=== PATIENT | female | born 1990 | race African-American/Black ===

== ENCOUNTER 2018-06-13 12:18 | Emergency (ER) | payer OTHER ==
[2018-06-13 13:13] LABS: KETONE, URINE AUTO RFX NEGATIVE (NEGATIVE); NITRITE, URINE AUTO RFX NEGATIVE (NEGATIVE); RBC, URINE AUTO RFX 14 /HPF (0-3); RENAL EPITHELIAL CELLS RFX 2 /HPF; SPECIFIC GRAVITY UR AUTO RFX 1.012 (1.002-1.035); SQUAM EPITHELIAL CELL UR AURFX 1 /HPF (0-6); TRANSITIONAL EPITHELIAL AU RFX <1 /HPF
[2018-06-13 13:30] LABS: LEUKOCYTE ESTERASE UR AUTO RFX 3+ (NEGATIVE); WBC, URINE AUTO RFX 166 /HPF (0-3)
[2018-06-13 13:44] LABS: HCG, SERUM QUANTITATIVE 65089 MIU/ML
[2018-06-13] MEDS ORDERED: NITROFURANTOIN (MACROBID) 100 MG CAP PO (15:30)
== END 2018-06-13 14:15 | disposition home or self-care (01) ==
LOC: M ED 12:18
DX: O20.0 Threatened abortion (principal); O23.41 Unspecified infection of urinary tract in pregnancy, first trimester; Z88.1 Allergy status to other antibiotic agents; Z88.2 Allergy status to sulfonamides; Z3A.10 10 weeks gestation of pregnancy
CPT/HCPCS: 76801

== ENCOUNTER 2018-08-22 20:39 | Outpatient (CLI) | payer OTHER ==
[~2018-08-22] VITALS: Ht 149.9 cm; Wt 61.1 kg
[~2018-08-22 20:39] MED LIST: MACR100C43 PO; PRENTAB55 PO
[2018-08-22 22:03] VITALS: BP 120/58
--- NOTE | 2018-08-22 22:31 | HPE ---
DATE OF ADMISSION: 08/22/2018 28-year-old 2, para 1, LMP 04/11/2018, EDC 01/04/2019 at 20 weeks and 6 days had spotting post intercourse. No cramps. No pain. No loss of fluid. PAST HISTORY July 2013 at 35 weeks, history of pre-eclampsia, oligohydramnios, primary section for nonreassuring heart tones, male 6 pounds. LABS: B+, HIV negative, hep negative, RPR negative, rubella immune. Varicella immune. Gonorrhea and chlamydia are negative. Urine is 10/10, pH 7 negative. Temperature is 98.4, blood pressure 120/58, respirations 18, pulse 82. On examination, no acute distress. No vaginal soiling or bleeding on the perineum. Ultrasound performed showed a viable IUP approximately 20 weeks with anterior placenta, four limb motions were noted, breech presentation. Appropriate RADHA. Cervical length 4.6. No funneling. No evidence of vaginal bleeding on examination. heart rate 160 beats per minute. The rest the examination unremarkable. She is normocephalic, atraumatic. Neck: Full range of motion. Pupils equal and reactive to light. Distal pulses symmetric. No evidence of deep venous thrombosis (DVT), pulmonary embolism (PE) or superficial phlebitis. Chest is clear bilaterally bases. No wheezes or rhonchi. No costovertebral angle (CVA) tenderness, nontender uterus, four quadrant bowel sounds are noted. She has no rashes, lesions or pruritus. No arthralgia, myalgia. No complaints of cough, wheezes, shortness of breath or dyspnea on exertion. Not bleeding. Neuro complete. No incontinency, urgency or frequency. No nausea, vomiting, diarrhea, or constipation. No diabetic issues. No Pap smear. PAST MEDICAL AND SURGICAL HISTORY: Unremarkable. FAMILY HISTORY: Noncontributory. She does not smoke, drink, abuse drugs. She is . Is a housewife. No domestic violence. SUMMARY: We have a 20 week 6 day that had postcoital bleeding. Precautions were given. Discharge undelivered. Has a scheduled appointment and a followup ultrasound on September 19, 2018.
== END 2018-08-22 21:50 | disposition home or self-care (01) ==
LOC: M LDO 20:39
PROVIDERS: ATTEND Obstetrics & Gynecology
DX: O26.892 Other specified pregnancy related conditions, second trimester (principal); O99.89 Other specified diseases and conditions complicating pregnancy, childbirth and the puerperium; N93.0 Postcoital and contact bleeding; Z3A.20 20 weeks gestation of pregnancy
CPT/HCPCS: 76815; G0378; G0463

== ENCOUNTER 2019-01-07 21:03 | Outpatient (CLI) | payer OTHER ==
[~2019-01-07] VITALS: Ht 149.9 cm; Wt 75.3 kg
[2019-01-07 21:22] VITALS: BP 160/95
[2019-01-07 21:34] VITALS: BP 139/95
[2019-01-07 21:43] VITALS: BP 136/91
[2019-01-07 21:52] VITALS: BP 143/94
--- NOTE | 2019-01-08 03:29 | HPE ---
DATE OF ADMISSION: 01/07/2019 This lady is a 28-year-old 2, para 1, last menstrual period (LMP) on 04/11/2018 estimated date of confinement (EDC) 01/04/2019 at 40 and 3 weeks of gestation with history of mild contractions for the last several hours. She is not breathing through them. She has no vaginal loss or bleeding. RISK FACTORS: She had a previous section for preeclampsia and oligohydramnios and nonreassuring heart tones at 35 weeks. LABORATORIES: B+, human immunodeficiency virus (HIV) negative, hepatitis negative, RPR negative, rubella immune. Varicella immune. Pap normal. Urine was contaminated. Gonorrhea and chlamydia are negative. Early 1-hour glucose was 138, 3-hour glucose tolerance test (GTT) fasting 85,l 1-hour 106, 2-hour 94 and 3-hour 79. Her blood pressures here were in the mid range as they were in the clinic 139/95, 136/91 and 120/58, respirations are 16, pulse 82, temperature is 98.1. Her urine is 1010, pH is 7. The rest is negative. The rest of the examination is unremarkable. Normocephalic, atraumatic. Neck: Full range of motion. Pupils equal and reactive to light. Distal pulses symmetric. No evidence of deep vein thrombosis (DVT), pulmonary embolism (PE) or superficial phlebitis. Chest is clear bilaterally bases. No wheezes or rhonchi. Abdomen: Soft. Fundus height appropriate. Four quadrant bowel sounds. Incision is clean and dry and no evidence of pain. On digital examination she had a previous examination yesterday, she was 1 cm posterior. She is now still 1 cm posterior, but a -1 station and she can feel the head in the pelvis. No vaginal bleeding or loss. We discussed the risks and benefits of trial of labor after (TOLAC) verses elective repeat section and this lady was uncertain as to which way to go. She was saying that if she comes in labor she will attempt a trial of labor after (TOLAC) but if it does not go then she will have a section as opposed to booking an elective repeat section. We did discuss the risks of trial of labor after (TOLAC) including hemorrhage, infection, perforation, , , risk of hysterectomy, risk of a blood transfusion all of which seemed to be news to her, although after reviewing the notes of the office notes apparently she was counseled regarding trial of labor after (TOLAC) versus section. As indicated, she is well hydrated. She was not having real contractions but some tightening category one strip. She was discharged with instructions that if there is ruptured membranes, bleeding or she is breathing through her contractions to come back immediately, if not she has an appointment on Sunday to discuss booking an elective repeat section. We spent an hour and answered all questions.
== END 2019-01-07 22:10 | disposition home or self-care (01) ==
LOC: M LDO 21:03
PROVIDERS: ATTEND Obstetrics & Gynecology
DX: O26.893 Other specified pregnancy related conditions, third trimester (principal); O47.1 False labor at or after 37 completed weeks of gestation; Z3A.40 40 weeks gestation of pregnancy
CPT/HCPCS: 59025; G0378; G0463

== ENCOUNTER 2019-01-09 22:13 | Inpatient (IN) | payer OTHER ==
[~2019-01-09] VITALS: Ht 149.9 cm; Wt 74.8 kg
[2019-01-09 22:36] VITALS: BP 121/78
[2019-01-09] MEDS ORDERED: PRENTAB9 PO (22:50)
[2019-01-09] MEDS: LR 1,000 ML IV SCH (23:00)
[2019-01-09] MEDS ORDERED: LACTATED RINGER'S 1000 ML IV STA (23:00)
--- NOTE | 2019-01-09 23:33 | HPEPDOC ---
Obstetrical History & Physical General Date of Admission Jan 09, 2019 at 23:03 History of Present Illness 28 yo at 40+5 weeks gestation by 10+5 week US on [id number] presents to L&D with regular, painful contractions that have been worsening throughout the day and evening. She denies any vaginal bleeding or leakage of fluid. She endorses excellent movement. She has a history of a prior c section in 2013 after an IOL for severe pre eclampsia at 35 weeks gestation for NRFHT and she strongly desires a TOLAC for this . Chief Complaint: Contractions, term Information Provided By: Patient Age: 28 : 2 Term: 1 Pre-term: 0 Abortions: 0 Livin Care Care: Good Care Dating Final EDC: Jan 04, 2019 Final EDC for Daily Update: Jan 04, 2019 Final EDC by: 1st trimester (US) (ALONSO set by 10+5 week US on [id number]) 1st Trimester Date: Jun 24, 2018 (10+5 week US on [id number] set ALONSO of [id number]) Antepartum Course Diagnos(e)s Prior section at 35 weeks in 2013 after IOL for severe Pre E and subsequent NRFHT ---> desires TOLAC for this . Was on ASA until 36 weeks. 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 Past Medical History Medical History Denies Surgical History: section Family History Significant Family History: No pertinent family hx Social History Marital Status: Family situation: Spouse/partner home Psychosocial History: No pertinent psych hx * Smoker: non-smoker Alcohol: Denies Drugs: denies Imunizations Tdap status: current Influenza Status: current Allergies Coded Allergies: erythromycin base (Verified Allergy, Unknown, 01/07/19) sulfisoxazole (Verified Allergy, Unknown, 01/07/19) Medications Scheduled Srf682/Iron Fum/Folic/Docusate ( 19 Tablet) 1 Tab Tab, 1 TAB PO DAILY No.137/Iron/Folic Acd ( Vitamin Tablet) 1 Each Tablet, 1 TAB PO DAILY Physical Examination Physical Examination GENERAL: Alert and oriented times three. ABDOMEN: Gravid and non-tender to touch. FETUS: Is vertex (VTX) by sterile vaginal examination (SVE) EXTREMITIES: No edema. Laboratory Data 24H LABS Laboratory Tests 2 01/09/19 23:08: Serology Scanned Report Hepatitis B Testing Urine Culture: No Growth Pertinent Laboratoy Data Blood Type: B+ RBC Antibody Screen: Negative HIV: Negative Hepatitis B: Negative Hepatitis C: Unknown Rapid Plasma Reagin: Nonreactive Rubella: Immune Varicella: Immune Chlamydia/Gonorrhea: Negative Group B Streptococcus: Negative Quad Screen Test: Negative Cystic Fibrosis: Unknown Glucose Tolerance Test: 138 (1hr 138, but normal 3hr GTT) Anatomy Ultrasound Placenta Location: Anterior Normal Anatomy: Yes Placenta Previa: No Steroid Therapy Steroid Therapy: No Vaginal Examination Dilation: 3 cm Effacement: 100% Station: -1, 0 Cervical Consistency: Soft Cervical Position: Middle Presentation: Cephalic presentation Position: Vertex (occiput) Assessment Heart Rate (FHR): 130 Variability: Moderate Accelerations: Positive Decelerations: None Tocometer Contractions: Yes Frequency: regular Strength: palpated as moderate Assessment/Plan Assessment 28 yo at 40+5 weeks gestation presents to L&D in early labor. History of c section in her first and she strongly desires TOLAC for this delivery. Plan Admit to L&D for expectant management of labor and trial of labor after section. Apply IV fluids. GBS negative. NPO. Patient may have epidural if desired. We discussed the risks of TOLAC vs ERLTCS in detail. I specifically discussed the risk of uterine rupture (~1%) and subsequent potential for serious maternal and/or morbidity and/or mortality should that occur. She verbalized unde rstanding of these risks and elected to proceed with TOLAC. Yao Nunez, DO Labor and Delivery Counseling consent The risk of attempting vaginal delivery after a previous delivery is that the scar on the uterus may separate during labor. This is known as uterine rupture and occurs in approximately 1 in 100 women with a previous low transverse incision on the womb. Where the previous incision on the womb has been labeled unknown because medical records could not be obtained for review, then the risk of uterine rupture depends on the previous indication for the . The risk is typically between that of women with a known low transverse scar and that of women who have had two previous deliveries (2-3 per 100 women). Because of this risk, active labor will be observed in the hospital and special monitoring may be used during labor to help evaluate contractions and the 's well-being. If uterine rupture occurs, an emergency delivery will be necessary. Uterine rupture can have negative effects for the or the mother. A blood transfusion due to excessive blood loss, in rare cases, the removal of the uterus (hysterectomy) may be necessary. One or two in 1000 women under-going a trial of labor after a previous delivery may deliver an infant with problems related to a slow heart rate just before delivery as a result of uterine rupture. Ms. Johnson understands these risks and elects to proceed with TOLAC. DO LELA Andrew CHRISTOPHER J. DO Jan 09, 2019 23:33
[2019-01-10 00:04] LABS: HEMATOCRIT 40.5 % (36.0-47.0); HEMOGLOBIN 13.1 g/dl (12.0-15.5); MEAN CORPUSCULAR HEMOGLOBIN 30.5 pg (27.0-33.0); MEAN CORPUSCULAR HGB CONC 32.3 g/dl (32.0-36.5); MEAN CORPUSCULAR VOLUME 94.4 fl (80.0-96.0); PLATELET COUNT, AUTOMATED 308 10^3/uL (150-450); RED BLOOD COUNT 4.29 10^6/uL (4.00-5.40); WHITE BLOOD COUNT 11.6 10^3/uL (4.0-10.0)
[2019-01-10 03:25] VITALS: BP 129/60
--- NOTE | 2019-01-10 06:34 | IPNPDOC ---
Text Note Date of Service The patient was seen on 01/10/19. NOTE Presented to room for assessment of progress. Patient breathing through contractions; they are significantly painful. Still desires to wait on epidural. Cervix: 4/C/0. Significant bloody show, and I do not feel a bag of water. FHR Cat I. Contractions regular. Patient progressing, but slow. SROM likely occurred, uncertain when. May have been small amount of fluid only. Would recommend recheck in ~2hrs. If there is not significant change at that time I would start pitocin. All patient questions answered. Iveth Nunez DO VS,Billy, I+O VS, Billy, I+O Laboratory Tests 01/09/19 23:33 Red Blood Count 4.29, Mean Corpuscular Volume 94.4, Mean Corpuscular Hemoglobin 30.5, Mean Corpuscular Hemoglobin Concent 32.3, Red Cell Distribution Width 12.6 Vital Signs Date Time Temp Pulse Resp B/P (MAP) Pulse Ox O2 Delivery O2 Flow Rate FiO2 01/10/19 03:25 97.7 92 129/60 (83) l I&O- Last 24 Hours up to 6 AM 01/10/19 06:00 Intake Total 0 ml Balance 0 ml IVETH NUNEZ DO Jan 10, 2019 06:34
[2019-01-10 07:40] VITALS: BP 147/97
[2019-01-10] MEDS: LR 1,000 ML IV SCH ×4 (07:42→23:49)
[2019-01-10] MEDS ORDERED: FENTANYL 2MCG/ML ROPIVACAINE 0.2% IN 0.9% NACL 100ML IVBAG As Ordered ONE (08:44)
--- NOTE | 2019-01-10 08:48 | IPNPDOC ---
Text Note Date of Service The patient was seen on 01/10/19. NOTE [place] of Care I assumed care of Chelsey at [address] Nunez. In brief, she is a 28yo at 40w5d who presented overnight with regular, painful ctx and found to be in latent/active labor. She has made slow change with no augmentation from 3cm to now 5-6/80/-2. Good bloody show. Ctx are now strong enough that patient is requesting an epidural which will be performed. IUPC placed without issue to better monitor ctx strength in the event we do need to augment. Vitals wnl Currently Cat I FHRT with +accels/-decels/mod gerald, however there have been some subtle late decels that resolved with resuscitative measures Plan for epidural now Will continue to closely monitor, re-check in 2-4hr or earlier as indicated Patient was counseled again at time of admission regarding risks of TOLAC and desired to proceed GBS negative Safe to proceed Dr. Samina Alexandra MD VS,Billy, I+O VS, Billy I+O Laboratory Tests 01/09/19 23:33 Red Blood Count 4.29, Mean Corpuscular Volume 94.4, Mean Corpuscular Hemoglobin 30.5, Mean Corpuscular Hemoglobin Concent 32.3, Red Cell Distribution Width 12.6 Vital Signs Date Time Temp Pulse Resp B/P (MAP) Pulse Ox O2 Delivery O2 Flow Rate FiO2 01/10/19 07:40 98.1 120 20 147/97 (114) I&O- Last 24 Hours up to 6 AM 01/10/19 06:00 Intake Total 0 ml Balance 0 ml Samina Alexandra MD Jan 10, 2019 08:47
[2019-01-10] MEDS ORDERED: LACTATED RINGER'S 1000 ML IV PRN (09:30)
[2019-01-10] MEDS ORDERED: ONDANSETRON 4MG/2ML VIAL (J2405) IV PRN ×4 (09:30→16:45)
[2019-01-10] MEDS ORDERED: FENTANYL/ROPIVACAINE/NACL BAG 100 ML EPIDURAL SCH (09:30)
[2019-01-10] MEDS ORDERED: REFRIGERATOR IV KEYS XX PRN (09:30)
[2019-01-10] MEDS ORDERED: NALOXONE INJ 0.4 MG/1 ML VIAL (J2310) IV PRN ×3 (09:30→15:10)
[2019-01-10] MEDS ORDERED: ePHEDrine SULFATE 25 MG/5 ML(5MG/ML) SYRINGE IV PRN (09:30)
[2019-01-10] MEDS ORDERED: EPIDURAL COMMENT XX SCH (09:30)
[2019-01-10] MEDS ORDERED: diphenhydrAMINE INJ 50MG/ML VIAL (J1200) IV PRN ×2 (09:30→15:10)
[2019-01-10] MEDS ORDERED: EPIDURAL/PCA KEYS XX PRN (09:30)
[2019-01-10] MEDS ORDERED: BICITRA 30ML SOLN UDC PO ONE (13:15)
--- NOTE | 2019-01-10 14:12 | IPNPDOC ---
Text Note Date of Service The patient was seen on 01/10/19. NOTE Decision for section Pt overall comfortable with epidural. Vitals wnl Currently Cat I-II FHRT with mod gerald, +accels, rare/occasional subtle late decels that respond to resuscitation [place]: inadequate MVUs with ctx q5-6min SCE: unchanged 5-6/80/-1, still has bloody show Discussed with patient that she has had no cervical change for >4hr and I am hesitant to try to augment with pitocin given that she already has occasional subtle late decels. I do not think the fetus will tolerate getting her to adequate MVUs. Patient is amenable to section at this point. She had GETA with crash c/s last time, and she does not want the surgery to become emergent. Fully consented for RLTCS and blood transfusion, discussed all r/b/a, and consent forms signed by patient and me Bicitra 2g IV anceph Anesthesia and nursing team notified Will proceed to OR when team is ready, plan for RLTCS indicated for arrest of descent/inability to augment Dr. Samina Alexandra MD VS,Billy, I+O VS, Billy, I+O Laboratory Tests 01/09/19 23:33 Red Blood Count 4.29, Mean Corpuscular Volume 94.4, Mean Corpuscular Hemoglobin 30.5, Mean Corpuscular Hemoglobin Concent 32.3, Red Cell Distribution Width 12.6 Vital Signs Date Time Temp Pulse Resp B/P (MAP) Pulse Ox O2 Delivery O2 Flow Rate FiO2 01/10/19 07:40 98.1 120 20 147/97 (114) I&O- Last 24 Hours up to 6 AM 01/10/19 06:00 Intake Total 0 ml Balance 0 ml Samina Alexandra MD Jan 10, 2019 14:12
[2019-01-10] MEDS ORDERED: OXYTOCIN INJ 10 UNITS/ML VIAL (J2590) As Ordered ONE (14:21)
[2019-01-10] MEDS ORDERED: LIDOCAINE 2% W/EPIN INJ 20ML **PRES FREE As Ordered ONE (14:25)
[2019-01-10] MEDS ORDERED: MORPHINE PRES-FREE INJ 10 MG/10 ML VIAL (J2274) As Ordered ONE (14:46)
[2019-01-10] MEDS ORDERED: ONDANSETRON 4MG/2ML VIAL (J2405) As Ordered ONE (15:06)
[2019-01-10] MEDS ORDERED: dexameTHASONE 4 MG/ML 1ML VIAL (J1100) As Ordered ONE (15:06)
[2019-01-10] MEDS ORDERED: METOCLOPRAMIDE INJ 10MG/2ML VIAL (J2765) IV PRN (15:10)
[2019-01-10] MEDS ORDERED: NALBUPHINE HCL 10 MG/ML AMP (J2300) IV PRN (15:10)
[2019-01-10] MEDS ORDERED: fentaNYL 100 MCG/2 ML INJECTION (J3010) IV PRN (16:45)
[2019-01-10] MEDS ORDERED: KETOROLAC 30 MG/ML VIAL (J1885) IV SCH (16:45)
[2019-01-10] MEDS ORDERED: RHOGAM 300 MCG (1500 IU) INJ (J2790) IM SCH (16:45)
[2019-01-10] MEDS ORDERED: NORCO, ANEXSIA 5/325MG TABLET (HYDROcodone/ACETAMINOPHEN) PO PRN (16:45)
[2019-01-10] MEDS ORDERED: MEASLES,MUMPS,RUBELLA VACCINE INJ (MMR-II) (90707) SC SCH (16:45)
[2019-01-10] MEDS ORDERED: PERCOCET 5MG/325MG TAB PO PRN ×2 (16:45)
[2019-01-10] MEDS ORDERED: OXYTOCIN INJ 20 UNITS in LR 1,000 ML IV SCH (17:00)
[2019-01-10 20:00] VITALS: BP 133/79
[2019-01-10] MEDS: KETOROLAC 30 MG/ML VIAL (J1885) IV SCH (23:44)
[2019-01-10] MEDS: DOCUSATE SODIUM 100 MG CAP PO SCH (23:44)
[2019-01-11 02:00] VITALS: BP 117/57
[2019-01-11] MEDS: KETOROLAC 30 MG/ML VIAL (J1885) IV SCH ×2 (04:18→08:45)
[2019-01-11 06:00] VITALS: BP 108/56
[2019-01-11 07:14] LABS: HEMATOCRIT 29.6 % (36.0-47.0); MEAN CORPUSCULAR HEMOGLOBIN 30.9 pg (27.0-33.0); MEAN CORPUSCULAR HGB CONC 32.8 g/dl (32.0-36.5); MEAN CORPUSCULAR VOLUME 94.3 fl (80.0-96.0); PLATELET COUNT, AUTOMATED 238 10^3/uL (150-450); RED BLOOD COUNT 3.14 10^6/uL (4.00-5.40); WHITE BLOOD COUNT 17.1 10^3/uL (4.0-10.0)
[2019-01-11 07:43] LABS: HEMOGLOBIN 9.7 g/dl (12.0-15.5)
[2019-01-11] MEDS: PRENATAL VITAMINS CHEWABLE TABLET PO SCH (08:45)
[2019-01-11] MEDS: DOCUSATE SODIUM 100 MG CAP PO SCH ×2 (08:45→21:03)
--- NOTE | 2019-01-11 08:54 | IPN ---
DATE: 01/11/2019 postoperative day #1 on Mrs. Johnson. 28-year-old 2, now para 2 admitted with contractions, desired a trial of labor after (TOLAC), had a previous (C) section at 35 weeks. She eventually got fully dilated with failure to progress any further and a diagnosis of CPD and failure to progress was made. She had a repeat section of a live male infant, 7 pounds 13 ounces, 3550 grams, scores of 8 and 9 at one and five minutes respectively. On her first day, her vital signs: Her blood pressure is 108/56, respirations are 16, pulse 54 and temperature is 98.0. Her admitting hemoglobin 13.1, hematocrit 40.5 and platelets were 308. day #1 hemoglobin is still pending. We discussed phlebitis, cystitis, mastitis, endometritis, cellulitis, diet, exercise, pain management, perineal, breast and wound care. Elder catheter was removed. She is voiding well, passing gas. Abdomen: Soft. Uterus two below. Lochia is moderate. Incision is clean and dry. Four quadrant bowel sounds are noted. The rest of the examination is unremarkable. She is normocephalic, atraumatic. Neck: Full range of motion. Pupils equal and reactive to light. Distal pulses are symmetric. No evidence of deep vein thrombosis (DVT), pulmonary embolism (PE), or superficial phlebitis. Chest is clear bilaterally bases. No wheezes or rhonchi. No costovertebral angle (CVA) tenderness. Plan of management is discharge for tomorrow morning. Meds are dispensed at [place]. She is presently breast-feeding and doing well. All questions were answered.
--- NOTE | 2019-01-11 09:08 | IPN ---
DATE OF SERVICE: 01/10/2019 This patient and requested circumcision of their male . After discussing risks and benefits of circumcision, the medical and nonmedical indications, penile block and aftercare, expressed understanding penile block, aftercare and bleeding, signed the consent form. All questions were answered. 20-minute discussion. We await the clearance by the applied anthropologist.
[2019-01-11 09:59] VITALS: BP 117/58
[2019-01-11 14:00] VITALS: BP 120/62
[2019-01-11] MEDS: IBUPROFEN 800 MG TAB PO SCH (17:17)
[2019-01-11 18:00] VITALS: BP 121/56
[2019-01-11 22:38] VITALS: BP 120/58
[2019-01-12] MEDS: IBUPROFEN 800 MG TAB PO SCH ×2 (00:50→08:46)
[2019-01-12 02:33] VITALS: BP 101/51
[2019-01-12 05:59] VITALS: BP 123/76
--- NOTE | 2019-01-12 07:42 | IPNPDOC ---
Text Note Date of Service The patient was seen on 01/12/19. NOTE POD2 RCS States feeling well, pain controlled with prescribed meds. Baby bonding and feeding well. No heavy VB. Lochia slowing. Ambulatory. Tolerating PO without issues. Elder out and voiding, UO adequate. VSSAF NAD A&O RRR CTAB LE no C/C/E Ut at U-2, [employer] C/D/I, bandage off CBC yesterday AM stable a/p: Doing well. Cont routine postop care. D/C tomorrow very likely. Sessions Billy REBOLLAR, I+O iBlly LOMELI I+O Vital Signs Date Time Temp Pulse Resp B/P (MAP) Pulse Ox O2 Delivery O2 Flow Rate FiO2 01/12/19 05:59 97.7 83 16 123/76 (92) 01/11/19 22:38 97 I&O- Last 24 Hours up to 6 AM 01/12/19 06:00 Intake Total 860 ml Output Total 3275 ml Balance -2415 ml SESSIONSMONTY MD Jan 12, 2019 07:42
[2019-01-12] MEDS: PRENATAL VITAMINS CHEWABLE TABLET PO SCH (08:46)
[2019-01-12] MEDS: DOCUSATE SODIUM 100 MG CAP PO SCH (08:46)
[2019-01-12] MEDS ORDERED: OXYC1TAB23 PO (14:22)
[2019-01-12] MEDS ORDERED: IBUP-1114 PO (14:22)
[2019-01-12] MEDS ORDERED: COLA100C5 PO (14:22)
--- NOTE | 2019-01-13 00:02 | DS.PDOC ---
Discharge Summary General Date of Admission Jan 09, 2019 at 23:03 Date of Discharge [id number] Discharge Summary ADMITTING DIAGNOSES: labor, TOLAC DISCHARGE DIAGNOSES: Eventual RLTCS indicated for arrest of descent/inability to augment HOSPITAL COURSE: Eventual arrest disorder. RLTCS indicated for arrest of descent/inability to augment delivery uncomplicated. Postop course uncomplicated. DISCHARGE MEDICATIONS: Motrin, Lanolin, Percocet, Nor, Colace DISCHARGE INSTRUCTIONS: Nothing in the vagina for 6 weeks. No driving for 2 weeks. No bathing for 4 weeks, shower only. F/U in OBGYN clinic in 1-2 weeks for incision check and routine follow-up in 6-8 weeks. Sessions Vital Signs/I&Os Vital Signs Date Time Temp Pulse Resp B/P (MAP) Pulse Ox O2 Delivery O2 Flow Rate FiO2 01/12/19 05:59 97.7 83 16 123/76 (92) 01/11/19 22:38 97 Discharge Medications Scheduled Docusate Sodium (Colace) 100 Mg Capsule, 100 MG PO BID, (Reported) Ibuprofen (Ibuprofen) 400 Mg Tablet, 800 MG PO Q8H for pain, (Reported) No.137/Iron/Folic Acd ( Vitamin Tablet) 1 Each Tablet, 1 TAB PO DAILY, (Reported) Scheduled PRN Oxycodone HCl/Acetaminophen (Oxycodone-Acetaminophen 5-325) 1 Each Tablet, 1 TAB PO Q4HP PRN for PAIN SCALE 1-5, (Reported) Oxycodone HCl/Acetaminophen (Oxycodone-Acetaminophen 5-325) 1 Each Tablet, 2 TAB PO Q4HP PRN for PAIN SCALE 6-10, (Reported) Allergies Coded Allergies: erythromycin base (Verified Allergy, Unknown, 01/07/19) sulfisoxazole (Verified Allergy, Unknown, 01/07/19) SESSIONS,MONTY San MD Jan 13, 2019 00:02
--- NOTE | 2019-01-13 10:34 | RO ---
DATE OF PROCEDURE: 01/10/2019 STAFF SURGEON: Samina Alexandra MD SNOW BLOWER: Dr. Mike Vasques CLINICAL SERVICE: Obstetrics DATE OF OPERATION: 01/10/2019 INDICATIONS FOR OPERATION: Chelsey is a 28-year-old, (G) 2, now para (P) 2 0-0 -2, who presented to labor and delivery at 40 weeks 5 days, and at 3 cm and was thought to be in latent/active labor. She had a history of a prior section and very strongly desired a trial of labor after . She made slow progress over the night from 3 cm to 4 cm and then to 6 cm, and she then made no further progress despite intrauterine pressure catheter being placed to fully detect contractions. She never made adequate Bagwell unit (MVU) and Pitocin could not be administered given that she had occasional subtle late heart rate decelerations. So after 4 hours un augmented labor and no cervical change, she was counseled and was amendable to proceeding with a section for inability to augment/arrest of dilation. PREOPERATIVE DIAGNOSIS: Alarcon intrauterine at 40 weeks 6 days with a history of prior section in labor. POSTOPERATIVE DIAGNOSIS: Alarcon intrauterine at 40 weeks 6 days with a history of prior section in labor, in addition to failed trial of labor after section with arrest of dilation/inability to augment. MATERIAL FORWARDED TO LAB FOR EXAMINATION: None. DESCRIPTION OF FINDINGS: Male infant in occiput anterior (OA) position. score 8 and 9. Weight 3550 grams. She had extensive dense scar tissue all the way from her skin, which itself was some of the keloid through the subcutaneous layers, which were densely adhesed, continued down to the fascia and then the uterus itself was completely socked in. On the left side there was a sheet of scar tissue such that the uterus could not be exteriorized and this is important to note for any future section that she may have. She was informed that she probably could not ever had a tubal ligation at the time of section given how dense the adhesion to the uterus was and we did not take the adhesion down from the anterior abdominal wall. However, there was room enough to perform the low transverse incision on the uterus and deliver the baby safely. INFECTION CLASSIFICATION: 2. ESTIMATED BLOOD LOSS: 500 mL. IV FLUIDS: 1800 mL. URINE OUTPUT: 100 mL of clear yellow urine. OPERATION PERFORMED: Repeat low transverse section. DESCRIPTION OF OPERATION: The patient was taken to the operating room. She had received epidural anesthesia previously, which was redosed. Elder catheter was already in place as well as bilateral sequential compression devices. She was prepped and draped in normal sterile fashion in the dorsal supine position with a left lateral tilt. Time-out was performed to confirm patient name, date of , procedure and indication, and the team was all in agreement. She received 2 grams of intravenous (IV) Ancef prophylactically. Epidural anesthesia was found to be adequate using an Allis clamp. I made close ellipse around her prior Pfannenstiel incision because the scar was keloid and I undermined just underneath the line of the scar tissue removing that prior scar completely. At that point, then I continued the Pfannenstiel skin incision down with a scalpel and carried it through to the underlying layer of fascia. Notably, she had extensive dense scar tissue. Fascia was incised in the midline and the incision was extended laterally with Henry scissors. Superior and inferior aspects of the fascial incision were grasped with Elliott clamps, elevated and the underlying rectus muscles were dissected off bluntly and sharply. The peritoneum was entered digitally and the rectus muscles were in the midline. Peritoneal incision was extended superiorly and inferiorly with good visualization of the bladder. There was omental adhesion up to the peritoneal layer on the anterior abdominal wall and on manual inspection the left side of the uterus was adhesed with a sheet of scar tissue to the anterior abdominal wall. The bladder blade was inserted. The vesicouterine peritoneum was identified, grasped with pickups and entered sharply with Metzenbaum scissors. Incision was extended laterally and a bladder flap was created digitally. Bladder blade was reinserted and the lower uterine segment was scored in a transverse fashion with a scalpel. Uterus was entered bluntly and the incision was extended with traction with clear amniotic fluid noted. Bladder blade was removed and the 's head was elevated to level of the incision. Fundal pressure was applied. The head was delivered atraumatically in OA position. Anterior shoulder, posterior shoulder and corpus were delivered without difficulty. Nose and mouth were suctioned with bulb suction. Cord was clamped times two and cut. Infant was handed off to the awaiting nursing team. Placenta was removed with traction on the umbilical cord and uterine massage, and we were unable to exteriorize the uterus given the sheet of scar tissue, so it was left in situ, but is was cleared of all clot and debris and then the uterine incision was repaired with #0 Vicryl suture in a running locking fashion. A second layer of the same suture was used to close the hysterotomy incision in imbricating fashion. The uterine incision was inspected and hemostasis was noted. The right gutter was cleared of all clots. The rectus muscles were reapproximated with [id number] stitch using #0 Vicryl suture. Fascia was reapproximated with #0 Vicryl suture in a running fashion. Subcutaneous tissue was copiously irrigated. Claire fascia was reapproximated using #3-0 Vicryl suture in a running fashion. Skin edges were reapproximated using three inverted interrupted stitches using #3-0 Vicryl suture followed by a running subcuticular stitch using #4-0 Monocryl suture. Incision was cleaned using wet lap dried with a dry lap. Steri-Strips were applied in usual fashion. Two strips of Telfa were layered on top of the Steri-Strips followed by a dry sterile towel. Vagina was cleared of all blood clot without active bleeding noted. Fundus was firm at U minus 2 cm. All counts were correct times two. The procedure was without complications, and the patient tolerated the procedure well. She was taken to the recovery room on labor and delivery in stable condition.
== END 2019-01-12 16:00 | disposition home or self-care (01) | DRG 773 ==
LOC: M LDO 22:13 → M LDI 23:03 → M OBS 01-10 19:47
PROVIDERS: ADMIT Obstetrics & Gynecology; ATTEND Obstetrics & Gynecology
PROC: 10D00Z1 Extraction of Products of Conception, Low, Open Approach (ICD-10-PCS; principal; 2019-01-10 15:11)
DX: O32.4XX0 Maternal care for high head at term, not applicable or unspecified (principal); Z37.0 Single live birth; Z3A.40 40 weeks gestation of pregnancy; O34.211 Maternal care for low transverse scar from previous cesarean delivery; O48.0 Post-term pregnancy; Z88.2 Allergy status to sulfonamides; Z88.8 Allergy status to other drugs, medicaments and biological substances